=== PATIENT | female | born 1970 | race Caucasian/White ===

== ENCOUNTER 2017-04-02 05:47 | Day surgery (SDC) | payer OTHER ==
[2017-04-02] MEDS ORDERED: BUPIVACAINE 0.5% 30 ML SDV MISC SCH (06:09)
[2017-04-02] MEDS ORDERED: LIDOCAINE 2% 5 ML SDV IF ONE (06:09)
--- NOTE | 2017-04-02 06:27 | PDHPUP ---
History & Physical Update H&P update statement: This history and physical update is based on an assessment of the patient which was completed after admission or registration (within 24 hours), but prior to the surgery/procedure. H&P update: H&P reviewed & patient examined, no change in patient's condition since H&P completed
[2017-04-02] MEDS ORDERED: BUPIVACAINE 0.5% 30 ML SDV ONE ×2 (06:32→07:04)
[2017-04-02] MEDS ORDERED: LIDO/EPI 2%** Not for Epidural 20 ML MDV ONE ×2 (06:33→07:04)
[2017-04-02 06:43] VITALS: RESP 16
[2017-04-02] MEDS ORDERED: BACITRACIN 50,000 UNITS/10 ML SYR IRR ONE (07:04)
[2017-04-02 08:06] VITALS: PULSE 69; TEMP 97.9; O2SAT 95
[2017-04-02 08:14] VITALS: BP 123/78
--- NOTE | 2017-04-03 15:24 | GOP ---
[f rep st] OPERATIVE REPORT DATE OF OPERATION: SURGEON: Alex Raines MD PREOPERATIVE DIAGNOSIS: POSTOPERATIVE DIAGNOSIS: Total of lidocaine plain and Marcaine plain. PROCEDURE PERFORMED: FINDINGS: INDICATIONS: This patient presented to my office discomfort. INAUDIBLE DICTATION DESCRIPTION OF PROCEDURE: /[id number]/MODL Completely re-dictated #[id number] MTDD
--- NOTE | 2017-04-04 16:34 | GOP ---
[f rep st] OPERATIVE REPORT DATE OF OPERATION: 04/02/2017 SURGEON: Alex Raines MD ANESTHESIA: Local block. Digital block was performed by me in the preop unit; 8 cc total of 50:50 two percent lidocaine plain and 0.5% bupivacaine plain were placed as a digital block for small finger. PREOPERATIVE DIAGNOSIS: Left small finger deep mass. POSTOPERATIVE DIAGNOSIS: Left small finger deep mass. PROCEDURE PERFORMED: Left small finger deep mass excision. FINDINGS: ESTIMATED BLOOD LOSS: Less than 2 cc. INDICATIONS: Patient was seen by me in clinic with a mass over the tip of the small finger over the palmar surface that had enlarged and was now causing her symptoms, was causing her discomfort with gripping. As this was a symptomatic mass, excisional biopsy was indicated. I discussed with her the risks and benefits of operative treatment. Risks include pain, bleeding, infection, stiffness, wound healing complications, mass recurrence, need for further operations. She understood the risks and wished to proceed. DESCRIPTION OF PROCEDURE: Patient was seen in preoperative holding area. She was given an opportunity to ask questions. All her questions were answered. Consent was signed. Digital block was performed. She was then taken to the operative suite. Care was taken to transfer the patient from the [facility] to the operative room table. Time-out was called, including surgical and nursing teams confirming the surgical site and procedure to be performed. The left upper extremity was prepped and draped in usual sterile fashion. A glove was used over the finger as a tourniquet, was rolled up the finger. The mass was approached with an oblique incision, carefully dissected down through the subcutaneous tissue with a small scissor identifying the mass. This was a small mass that appeared to be vascular type tissue. Dissected out the mass in its entirety and removed the mass in its entirety. Looked for any other masses. The mass appeared to be removed in its entirety. The wound was irrigated. The tourniquet was let down. Bleeding was controlled. Sterile dressing was applied. Patient tolerated procedure well, was taken to PACU in stable condition. POSTOPERATIVE CONDITION: Stable. POSTOPERATIVE PLAN: Patient will follow up in clinic in 10-14 days. We will review the pathology. /[id number]/MODL MTDD
== END 2017-04-02 08:16 | disposition home or self-care (01) ==
LOC: FSGY 05:47
PROVIDERS: ATTEND Orthopaedic Surgery Hand Surgery
PROC: 0JBK0ZZ Excision of Left Hand Subcutaneous Tissue and Fascia, Open Approach (ICD-10-PCS; principal; 2017-04-02 07:15)
DX: D18.01 Hemangioma of skin and subcutaneous tissue (principal)